=== PATIENT | male | born 2000 | race Caucasian/White ===

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

== ENCOUNTER 2018-03-28 17:14 | Emergency (ER) | payer MEDICAID ==
[2018-03-28 17:26] VITALS: BP 120/56
[2018-03-28] MEDS ORDERED: CEPHALEXIN 500 MG CAPSULE PO ONE (18:00)
--- NOTE | 2018-03-28 18:03 | ER Document Report ---
HPI - HPI Patient complains to provider of: ingrown toe nail Onset: Other - 2 days Onset/Duration: Persistent Quality of pain: Achy Pain Level: 4 Context: Patient presents complaining of concerns about possible ingrown toenail to the right great toe. Patient states he has had tenderness for the past 2 days. Patient denies any drainage from the toe. Patient states that the pain increases when he is walking around at his job. Associated Symptoms: Other - Right great toe Exacerbated by: Walking Relieved by: Denies Similar symptoms previously: Yes Recently seen / treated by doctor: No - ROS ROS below otherwise negative: Yes Systems Reviewed and Negative: Yes All other systems reviewed and negative - CONSTITUTIONAL Constitutional: DENIES: Fever - MUSCULOSKELETAL Musculoskeletal: REPORTS: Extremity pain, Swelling Past Medical History - General Information source: Patient, Parent - Social History Smoking Status: Never Smoker Frequency of alcohol use: None Drug Abuse: None Occupation: [employer] Lives with: Family Family History: Reviewed & Not Pertinent - Medical History Medical History: Negative Renal/ Medical History: Denies: Hx Peritoneal Dialysis Past Surgical History: Reports: Hx Appendectomy - Immunizations Immunizations up to date: Yes Vertical Provider Document - CONSTITUTIONAL Agree With Documented VS: Yes Exam Limitations: No Limitations General Appearance: WD/WN, No Apparent Distress - INFECTION CONTROL TRAVEL OUTSIDE OF THE [place] IN LAST 30 DAYS: No - HEENT HEENT: Atraumatic, Normocephalic - NECK Neck: Normal Inspection - RESPIRATORY Respiratory: No Respiratory Distress - CARDIOVASCULAR Pulses: Normal: Dorsalis pedis - MUSCULOSKELETAL/EXTREMETIES Musculoskeletal/Extremeties: MAEW, Tender - Minimal tenderness to the lateral margin of her right great toe with faint swelling and erythema, Edema - NEURO Level of Consciousness: Awake, Alert, Appropriate Motor/Sensory: No Motor Deficit - DERM Integumentary: Warm, Dry. negative: Abscess Notes: Patient with paronychia to right great toe, no obvious ingrown toenail at this time Course - Re-evaluation Re-evalutation: 03/28/18 18:[address] to trim toenails to avoid risk of ingrown toenail. Patient encouraged to follow-up with floor tiling professional for definitive management of any potential ingrown toenail. - Vital Signs Vital signs: Temp Pulse Resp BP Pulse Ox 98.1 F 55 L 18 120/56 L 97 03/28/18 17:24 04/28/18 17:24 03/28/18 17:24 03/28/18 17:24 03/28/18 17:24 Discharge - Discharge Clinical Impression: Paronychia of toe of right foot Condition: Stable Disposition: HOME, SELF-CARE Instructions: Cephalexin ([facility]), Paronychia ([facility]) Additional Instructions: Return immediately for any new or worsening symptoms Followup with your primary care provider, call tomorrow to make a followup appointment Soak foot 2-3 times each day Follow-up with floor tiling professional for definitive management of recurrent ingrown toenail Prescriptions: Cephalexin Monohydrate [Keflex 500 mg Capsule] 500 mg PO Q6H 5 Days capsule Naproxen [Naprosyn 250 Nmg Tablet] 1 tab PO BID #14 tablet Forms: Return to Work Referrals: CIRO MARTINEZ DPM [ACTIVE STAFF] - Follow up as needed MILLIE SERRA DPM [ACTIVE STAFF] - Follow up as needed
== END 2018-03-28 18:15 | disposition home or self-care (01) ==
LOC: ER 17:14
DX: L03.031 Cellulitis of right toe (principal)
CPT/HCPCS: 99283